=== PATIENT | male | born 1945 | race Two or more races ===

== ENCOUNTER 2017-08-04 05:58 | Inpatient (IN) | payer OTHER ==
[~2017-08-04] VITALS: Ht 167.6 cm; Wt 91.0 kg
[~2017-08-04 05:58] MED LIST: AMLO5TAB2 PO; ATOR20TA50 PO; BENA40TA7 PO; HYDR12.56 PO; IBUP600T27 PO; METF-370 PO; METO-159 PO; OMEP20CA74 OR
[2017-08-04] MEDS ORDERED: ceFOXitin 2GM/100ML 100 ML IV ONE (06:33)
[2017-08-04] MEDS ORDERED: SUCCINYLCHOLINE CHLORIDE 20 MG/ML 10ML VIAL IV ONE (06:46)
[2017-08-04] MEDS ORDERED: ROCURONIUM 10MG/ML 10ML VIAL IV ONE (06:54)
[2017-08-04] MEDS ORDERED: fentaNYL CITRATE 10 ML ONE (06:54)
[2017-08-04] MEDS ORDERED: PROPOFOL 10 MG/ML 20 ML IV ONE (06:54)
[2017-08-04] MEDS ORDERED: ONDANSETRON HCL 4 MG/2 ML VIAL ONE (06:54)
[2017-08-04] MEDS ORDERED: MIDAZOLAM HCL 1MG/1ML-2 ML VIAL ONE (06:54)
[2017-08-04] MEDS ORDERED: HYDROmorphone HCL 2 MG/ML VL ONE (06:54)
[2017-08-04 07:13] LABS: Basophils # (auto) 0.1 uL; Basophils % (auto) 0.8 % (0.0-2.0); Eosinophils # (auto) 0.2 uL; Eosinophils % (auto) 2.1 % (0.0-7.0); Hematocrit 45.3 % (41.0-53.0); Hemoglobin 15.6 g/dL (13.5-17.5); Lymphocytes # (auto) 1.6 uL; Lymphocytes % (auto) 22.6 % (10.0-50.0); Mean Corpuscular Hemoglobin 32.5 pg (28.0-32.0); Mean Corpuscular Hgb Conc. 34.4 g/dL (32.0-36.0); Mean Corpuscular Volume 94.5 fL (80.0-100.0); Monocytes # (auto) 0.5 uL; Monocytes % (auto) 6.9 % (0.0-12.0); Neutrophils # (auto) 4.9 uL; Neutrophils % (auto) 67.6 % (37.0-80.0); Nucleated Red Blood Cells % 0.1 %; Platelet Count (auto) 186 10^3/uL (140-450); Red Cell Distribution Width 13.6 % (11.8-14.3); White Blood Cell 7.2 10^3/uL (4.4-10.8)
[2017-08-04 07:40] LABS: BUN/Creatinine Ratio 14.1; Calcium 9.5 mg/dL (8.5-10.1); Potassium 3.9 mmol/L (3.5-5.1)
[2017-08-04] MEDS ORDERED: LIDOCAINE 1% HCL (LOCAL ANESTH.) INJ 20ML MDV ONE (07:53)
[2017-08-04] MEDS ORDERED: BUPIVACAINE 0.25% INJ 50ML VIAL ONE (07:53)
[2017-08-04 08:19] LABS: INR 1.09 (0.9-1.15); Partial Thromboplastin Time 27.8 sec (22.64-33.71); Prothrombin Time 11.9 sec (9.37-12.3)
[2017-08-04] MEDS ORDERED: METOCLOPRAMIDE HCL 5MG/ml INJ 2ml VIAL IV ONE (08:30)
[2017-08-04] MEDS ORDERED: KETOROLAC TROMETH 30 MG/ML 1ML VIAL IV ONE (08:30)
[2017-08-04] MEDS ORDERED: ACCU-CHEK COMFORT CURVE STRIP VI ONE (08:30)
[2017-08-04] MEDS ORDERED: NEOSTIGMINE 1 MG/ML INJ (10mg/10ML VIAL) ONE (08:58)
[2017-08-04] MEDS ORDERED: KETOROLAC TROMETH 60MG/2ML VIAL IM ONE (08:58)
[2017-08-04] MEDS ORDERED: GLYCOPYRROLATE 0.2 MG/ML 1ML VIAL ONE (08:58)
[2017-08-04] MEDS ORDERED: PATIENTS OWN MEDICATION (Metoprolol Tartrate 1 TAB) PO SCH (10:00)
[2017-08-04] MEDS ORDERED: PATIENTS OWN MEDICATION (Hydrochlorothiazide 12.5 MG) PO SCH (10:00)
[2017-08-04] MEDS ORDERED: HYDROmorphone HCL 2 MG/ML VL IV PRN (10:00)
[2017-08-04] MEDS ORDERED: diphenhdrAMINE HCL 50 MG/1 ML VL IV PRN (10:00)
[2017-08-04] MEDS ORDERED: PATIENTS OWN MEDICATION (Benazepril Hcl 40 MG) PO SCH (10:00)
[2017-08-04] MEDS ORDERED: DEXTROSE (50%) 50ML SYRG IV PRN (10:00)
[2017-08-04] MEDS: HYDROmorphone HCL 2 MG/ML VL IV PRN ×3 (10:20→11:50)
[2017-08-04] MEDS ORDERED: ACETAMINOPHEN IV 100 ML IV ONE (10:23)
[2017-08-04] MEDS ORDERED: diphenhdrAMINE HCL 50 MG/1 ML VL ONE (10:29)
[2017-08-04] MEDS ORDERED: BENAZEPRIL HCL 10 MG TAB PO ONE (10:30)
[2017-08-04] MEDS ORDERED: METOPROLOL TARTRATE 50 MG TAB PO ONE (10:30)
[2017-08-04] MEDS ORDERED: ACETAMINOPHEN IV 1000 MG/100ML (10MG/ML) IV ONE (10:30)
[2017-08-04] MEDS ORDERED: EPINEPHrine HCL 0.5 ML NEB NEB STA (10:34)
[2017-08-04] MEDS: SOD CHL 0.45% 1,000 ML IV SCH ×2 (14:39→15:56)
[2017-08-04] MEDS: ATORVASTATIN 20 MG TAB PO SCH (14:39)
[2017-08-04] MEDS: OMEPRAZOLE 20MG/10ML ORAL SUSP PO SCH (14:39)
[2017-08-04] MEDS: CEFOXITIN SODIUM 1 GM in D5W 5% 50 ML IV SCH ×2 (14:39→17:23)
[2017-08-04] MEDS: InsuLIN REG 1unit/0.01ml Soln (100units/ml) SC SCH ×2 (14:41→17:00)
[2017-08-04] MEDS: ACCU-CHEK COMFORT CURVE STRIP VI SCH ×3 (14:41→22:01)
[2017-08-04 15:54] VITALS: BP 133/78
[2017-08-04] MEDS: ACETAMINOPHEN/CODEINE#3 (300/30mg) TAB PO PRN ×2 (15:56→23:51)
[2017-08-04] MEDS: ONDANSETRON HCL 4 MG/2 ML VIAL IV PRN (15:56)
[2017-08-04] MEDS: metFORMIN HYDROCHLORIDE 500 MG TAB PO SCH (17:23)
[2017-08-04] MEDS ORDERED: InsuLIN REG 1unit/0.01ml Soln (100units/ml) SC SCH (22:00)
[2017-08-04] MEDS ORDERED: amLODIPine BESYLATE 5 MG TAB PO SCH (22:00)
[2017-08-04] MEDS: METOPROLOL TARTRATE 50 MG TAB PO SCH (22:03)
[2017-08-04] MEDS: BENAZEPRIL HCL 10 MG TAB PO SCH (22:03)
[2017-08-04 22:48] VITALS: BP 121/68
[2017-08-05] MEDS: CEFOXITIN SODIUM 1 GM in D5W 5% 50 ML IV SCH ×2 (01:45→09:56)
[2017-08-05] MEDS: SOD CHL 0.45% 1,000 ML IV SCH ×2 (01:45→07:44)
[2017-08-05] MEDS: ACETAMINOPHEN/CODEINE#3 (300/30mg) TAB PO PRN ×2 (03:53→10:38)
[2017-08-05 05:02] VITALS: BP 123/74
[2017-08-05 06:17] LABS: BUN/Creatinine Ratio 12.9; Calcium 8.5 mg/dL (8.5-10.1)
[2017-08-05] MEDS: InsuLIN REG 1unit/0.01ml Soln (100units/ml) SC SCH ×2 (06:48→11:05)
[2017-08-05] MEDS: ACCU-CHEK COMFORT CURVE STRIP VI SCH ×2 (06:48→11:04)
[2017-08-05] MEDS: metFORMIN HYDROCHLORIDE 500 MG TAB PO SCH (06:48)
[2017-08-05] MEDS: ONDANSETRON HCL 4 MG/2 ML VIAL IV PRN (07:42)
[2017-08-05 09:19] VITALS: BP 126/69
[2017-08-05] MEDS: OMEPRAZOLE 20MG/10ML ORAL SUSP PO SCH (09:57)
[2017-08-05] MEDS: BENAZEPRIL HCL 10 MG TAB PO SCH (09:57)
[2017-08-05] MEDS: ATORVASTATIN 20 MG TAB PO SCH (09:57)
[2017-08-05] MEDS: METOPROLOL TARTRATE 50 MG TAB PO SCH (09:57)
[2017-08-05] MEDS ORDERED: HCTZ 25 MG TAB PO SCH (10:00)
== END 2017-08-05 13:02 | disposition home or self-care (01) | DRG 708 ==
LOC: SUR 05:58 → TELE-CENTR 05:59
PROVIDERS: ADMIT Urology; ATTEND Internal Medicine
PROC: 07TC4ZZ Resection of Pelvis Lymphatic, Percutaneous Endoscopic Approach (ICD-10-PCS; 2017-08-04)
PROC: 8E0W4CZ Robotic Assisted Procedure of Trunk Region, Percutaneous Endoscopic Approach (ICD-10-PCS; 2017-08-04)
PROC: 0TQC4ZZ Repair Bladder Neck, Percutaneous Endoscopic Approach (ICD-10-PCS; 2017-08-04)
PROC: 0VT04ZZ Resection of Prostate, Percutaneous Endoscopic Approach (ICD-10-PCS; principal; 2017-08-04 07:24)
DX: C61 Malignant neoplasm of prostate (principal); E11.9 Type 2 diabetes mellitus without complications; I10 Essential (primary) hypertension; E78.00 Pure hypercholesterolemia, unspecified; Z96.612 Presence of left artificial shoulder joint; Z96.611 Presence of right artificial shoulder joint; Z96.653 Presence of artificial knee joint, bilateral
CPT/HCPCS: 36415; 80048; 82962; 85025; 85610; 85730; 86850; 86900; 86901; 88341; 94640; J0131; J0330; J0694; J1885; J2001; J2250; J2405; J2704; J3490; J7060